=== PATIENT | female | born 1970 | race Caucasian/White ===

== ENCOUNTER 2018-12-02 15:31 | Inpatient (IN) | payer MEDICAID ==
[~2018-12-02] VITALS: Ht 152.4 cm; Wt 53.5 kg
[2018-12-02 15:38] VITALS: BP 121/58
[2018-12-02] MEDS ORDERED: ASPIRIN 325 MG TAB PO ONE (16:10)
--- NOTE | 2018-12-02 16:21 | NUR ---
PT BIB DAUGHTER C/O OF CP. PT REPORTS SHARP NON-RADIATING CP AT 8/10 THAT OCCURED TODAY AROUND 12:00 AND LASTED A COUPLE MINUTES AND WAS ACCOMPANIED WITH NAUSEA. PT DENIES SOB OR CP AT THIS TIME. CAP REFIL <2 SEC, HEART RRR, NO JUGULAR VEE DISTENTION, NO EDEMA, PT AAOX4, COOPERATIVE, RR EVEN, NON-LABORED, O2 SAT AT 100%. PT DAUGHTER REPORTS THAT THESE PAINS HAVE BEEN OCCURRING FOR THE POAST COUPLE DAYS. VSS. ER TO SEE PT. MEDHX:ANXIETY RX:DENIES
[2018-12-02 16:46] LABS: BASOPHILS % (AUTO) 0.3 % (0.0-2.0); EOSINOPHILS % (AUTO) 0.2 % (0.0-4.0); HEMATOCRIT 38.9 % (36-48); HEMOGLOBIN 12.9 g/dL (12.0-16.0); MEAN CORPUSCULAR HEMOGLOBIN 31 pg (27-31); MEAN CORPUSCULAR HGB CONC 33 g/dL (33-37); MEAN CORPUSCULAR VOLUME 92.1 fL (80-94); MONOCYTES # (AUTO) 0.4 K/uL (0.8-1.0); NEUTROPHILS # (AUTO) 5.9 K/uL (1.8-7.7); NEUTROPHILS % (AUTO) 79.5 % (42.2-75.2); PLATELET COUNT (AUTO) 147 K/uL (140-450); RED BLOOD CELL COUNT(AUTO) 4.23 MIL/uL (4.20-5.40); RED CELL DISTRIBUTION WIDTH 13.7 % (11.6-13.7); WHITE BLOOD COUNT (AUTO) 7.4 K/uL (4.8-10.8)
[2018-12-02 16:57] LABS: ANION GAP 11.9 (8-16); CARBON DIOXIDE 26.2 mmol/L (21-32); CREATININE 0.6 mg/dL (0.6-1.3); POTASSIUM 4.1 mmol/L (3.5-5.1)
[2018-12-02 17:01] LABS: PROTHROMBIN TIME 9.9 secs (10.8-13.4)
[2018-12-02 17:02] LABS: C-REACTIVE PROTEIN QUANT < 0.2 mg/dL (0.0-0.9)
[2018-12-02 17:03] LABS: ALBUMIN 3.9 g/dL (3.4-5.0); TOTAL BILIRUBIN 0.3 mg/dL (0.0-1.0)
[2018-12-02 17:07] LABS: D-DIMER < 100 ng/ml (0-400)
[2018-12-02] MEDS ORDERED: NITROGLYCERIN 0.4 MG TAB SL ONE (17:25)
[2018-12-02] MEDS ORDERED: DOCUSATE SODIUM 100 MG GELCAP PO PRN (17:25)
[2018-12-02] MEDS ORDERED: MORPHINE SULFATE 2 MG/ML SYR IVP PRN (17:25)
[2018-12-02] MEDS ORDERED: HYDROcodone/APAP 7.5/325 MG 1 TAB PO PRN (17:25)
[2018-12-02] MEDS ORDERED: ACETAMINOPHEN 325 MG TAB PO PRN (17:25)
[2018-12-02] MEDS ORDERED: ONDANSETRON 4 MG/2 ML VIAL IM/IVP PRN (17:25)
[2018-12-02 17:38] LABS: APPEARANCE,URINE CLEAR (CLEAR); BILIRUBIN,URINE NEGATIVE (NEGATIVE); BLOOD, URINE NEGATIVE (NEGATIVE); COLOR,URINE YELLOW (YELLOW); LEUKOCYTE ESTERASE ,URINE NEGATIVE (NEGATIVE); NITRITE, URINE NEGATIVE (NEGATIVE); PH,URINE 6.5 (5.0-9.0); UGLUCOSE NEGATIVE (NEGATIVE)
[2018-12-02 17:52] LABS: BARBITURATE, URINE NEG. ng/ml (NEG <=200); BENZODIAZEPINE, URINE NEG. ng/mL (NEG <=200); CANNABINOID, URINE NEG. ng/mL (NEG <=50); COCAINE, URINE NEG. ng/mL (NEG <=300); OPIATE, URINE NEG. ng/mL (NEG <=2000); PHENCYCLIDINE SCREEN,URINE NEG. ng/mL (NEG <=25)
[2018-12-02 17:56] LABS: CHOL/HDL RATIO 3.1 (1-4.5); MAGNESIUM 1.8 mg/dL (1.8-2.4); PHOSPHORUS 2.4 mg/dL (2.5-4.9); THYROID STIMULATING HORMONE 1.71 uIU/mL (0.34-3.74)
[2018-12-02 18:03] VITALS: BP 110/71
--- NOTE | 2018-12-02 18:03 | NUR ---
BEDSIDE REPORT RECEIVED FROM DINO BAUTISTA RN. PATIENT ON TELE MONITOR AND STANDARD PRECAUTIONS IN PLACE. PATIENT AAOX4 AND ON ROOM AIR, NO DISTRESS NOTED. PATIENT AMBULATORY, CONTINENT, AND SKIN INTACT. IV ON L AC 20G SALINE LOCK, IV PATENT AND INTACT. BED IN LOW POSITION, CALL LIGHT WITHIN REACH, SIDE RAILS X2 UP
--- NOTE | 2018-12-02 18:03 | NUR ---
Patient will be admitted to care of [facility]. Admited to tele via gurnwy w/ vss. Will go to room 122B. Belongings list completed. Report to Madison DE ANDA.
--- NOTE | 2018-12-02 19:25 | NUR ---
BEDSIDE REPORT GIVEN TO ADILSON HINKLE. PATIENT ENDORSED IN STABLE CONDITION
--- NOTE | 2018-12-02 19:26 | NUR ---
RECEIVED REPORT AT PT BEDSIDE FROM ADILSON CALLAHAN. PT IS AAOX4, ON ROOM AIR WITH CLEAR LUNG SOUNDS, AND SLOVENIAN SPEAKING. ABLE TO FOLLOW COMMANDS, AND ABLE TO MAKE NEEDS KNOWN. PT AMBULATES WITH STEADY GAIT INDEPENDENTLY. SKIN IS CLEAN, DRY, AND INTACT. PT HAS A 20G IV TO LEFT AC, ASYMPTOMATIC AND INTACT. NO SIGNS OR SYMPTOMS OF DISTRESS NOTED. VITAL SIGNS STABLE, DENIES HAVING ANY TYPE OF PAIN AT THIS MOMENT. BED IN LOWEST POSITION, CALL LIGHT WITHIN REACH. SAFETY MEASURES IN PLACE. WILL CONTINUE TO MONITOR.
[2018-12-02 20:00] VITALS: BP 105/66
[2018-12-02] MEDS ORDERED: LIDOCAINE VISCOUS 2% 20 ML UDC PO SCH (20:00)
[2018-12-02] MEDS ORDERED: DICYCLOMINE HCL LIQUID 10 MG/5 ML UDC PO SCH (20:00)
[2018-12-02] MEDS ORDERED: ALUMINUM HYD/MAG/SIMETHICONE 30 ML UDC PO SCH (20:00)
[2018-12-02] MEDS: METOPROLOL 25 MG TAB PO SCH (21:00)
[2018-12-02] MEDS ORDERED: METOPROLOL SUCCINATE 50 MG TABER PO SCH (21:00)
--- NOTE | 2018-12-02 21:05 | NUR ---
PT REFUSED MEDICATIONS BECAUSE SHE'S NOT HAVING ANY PAIN, HEARTBURN, OR DISCOMFORT AND SHE DOESN'T TAKE MEDICATIONS AT HOME. DR. LEE MADE AWARE.
[2018-12-02] MEDS: NACL 0.9% 1,000 ML IV SCH (21:33)
--- NOTE | 2018-12-02 22:18 | NUR ---
PROVIDED PT WITH DINNER AND EDUCATED HER ON BEING NPO AFTER MIDNIGHT, PT VERBALIZED UNDERSTANDING. BED IN LOWEST POSITION, CALL LIGHT WITHIN REACH. WILL CONTINUE TO MONITOR.
[2018-12-03] VITALS: BP 110/62
--- NOTE | 2018-12-03 | NUR ---
VITAL SIGNS STABLE, DENIES HAVING ANY TYPE OF PAIN AT THIS MOMENT. NO SIGNS OR SYMPTOMS OF DISTRESS NOTED. BED IN LOWEST POSITION, CALL LIGHT WITHIN REACH. SAFETY MEASURES IN PLACE. WILL CONTINUE TO MONITOR.
--- NOTE | 2018-12-03 01:05 | NUR ---
PT ASKED TO BE DISCONNECTED FROM IV TO GO TO RESTROOM. PT VOIDED AND IV WAS RECONNECTED. BED IN LOWEST POSITION, CALL LIGHT WITHIN REACH. SAFETY MEASURES IN PLACE. WILL CONTINUE TO MONITOR.
--- NOTE | 2018-12-03 03:38 | NUR ---
PT ASKED TO BE DISCONNECTED TO USE RESTROOM AGAIN. PT ASKED TO WAIT FOR HER SO THAT SHE WOULD BE CONNECTED AGAIN. PT ONLY VOIDED AGAIN, AND AMBULATED BACK TO BED. PT WAS RECONNECTED TO IV FLUIDS. BED IN LOWEST POSITION, CALL LIGHT WITHIN REACH. SAFETY MEASURES IN PLACE. WILL CONTINUE TO MONITOR.
[2018-12-03 04:00] VITALS: BP 107/71
[2018-12-03] MEDS: NACL 0.9% 1,000 ML IV SCH (05:26)
[2018-12-03] MEDS ORDERED: SODIUM PHOS / POTASSIUM PHOS 1 PKT PDR PO SCH ×2 (06:00→10:20)
--- NOTE | 2018-12-03 06:22 | NUR ---
JANETTE PHOS WAS ORDERED FOR THIS MORNING, Xeebel TECH HAD SAID TO KEEP PT NPO UNTIL US ABD IS DONE. ASKED DR SWANN IF MEDICATION CAN BE GIVEN NOW OR IF IT SHOULD BE HELD UNTIL AFTER ABD US. SHE SAID IT WAS OKAY TO HOLD UNTIL AFTER US.
--- NOTE | 2018-12-03 06:53 | NUR ---
CALLED US TO ASK WHEN US WILL BE DONE. THE US TECH SAID IT WAS OK TO GIVE PT MEDICATION AND SHE WILL BE HERE SOON. ADMINISTERED THE NEUTRA-PHOS.
--- NOTE | 2018-12-03 07:27 | NUR ---
ENDORSED PT TO DAY SHIFT ADILSON QUINTERO FOR CONTINUITY OF CARE, PT IN STABLE CONDITION.
[2018-12-03 08:00] VITALS: BP 108/67
[2018-12-03 08:15] LABS: T4 (THYROXINE) 6.3 ug/dL (4.5-12.0)
[2018-12-03 08:31] LABS: BASOPHILS % (AUTO) 0.2 % (0.0-2.0); EOSINOPHILS % (AUTO) 0.5 % (0.0-4.0); HEMATOCRIT 37.4 % (36-48); HEMOGLOBIN 12.3 g/dL (12.0-16.0); LYMPHOCYTES # (AUTO) 1.8 K/uL (2.5-16.5); MEAN CORPUSCULAR HEMOGLOBIN 30 pg (27-31); MEAN CORPUSCULAR HGB CONC 33 g/dL (33-37); MEAN CORPUSCULAR VOLUME 92.3 fL (80-94); MONOCYTES # (AUTO) 0.4 K/uL (0.8-1.0); MONOCYTES % (AUTO) 6.6 % (1.7-9.3); NEUTROPHILS % (AUTO) 63.7 % (42.2-75.2); PLATELET COUNT (AUTO) 136 K/uL (140-450); RED BLOOD CELL COUNT(AUTO) 4.05 MIL/uL (4.20-5.40); RED CELL DISTRIBUTION WIDTH 13.9 % (11.6-13.7); WHITE BLOOD COUNT (AUTO) 6.3 K/uL (4.8-10.8)
[2018-12-03] MEDS: METOPROLOL 25 MG TAB PO SCH (09:00)
[2018-12-03] MEDS ORDERED: LISINOPRIL 5 MG TAB PO SCH (09:00)
[2018-12-03 09:08] LABS: ANION GAP 8.5 (8-16); CARBON DIOXIDE 27.7 mmol/L (21-32); CREATININE 0.5 mg/dL (0.6-1.3); POTASSIUM 4.2 mmol/L (3.5-5.1)
--- NOTE | 2018-12-03 09:17 | NUR ---
PATIENT HAS BEEN SCREENED AND CATEGORIZED MODERATE NUTRITION RISK. PATIENT WILL BE SEEN WITHIN 3-5 DAYS OF ADMISSION. 12/05/18[address]
--- NOTE | 2018-12-03 09:25 | NUR ---
ENGINEERING OPERATOR SAFIA #[id number]. EXPLAINED ALL MEDICATIONS, PT VERBALIZED UNDERSTANDING. GAVE ORDERED DUE MEDICATIONS. EXCEPT BLOOD PRESSURE MEDICATIONS DUE TO LOW BLOOD PRESSURE. PT TOLERATED WELL. BED IN LOW POSITION. BED ALARM ON. CALL LIGHT AT BEDSIDE. WILL CONTINUE TO MONITOR.
[2018-12-03] MEDS: ASPIRIN 81 MG TAB.CHEW PO SCH (09:53)
[2018-12-03] MEDS: ATORVASTATIN 20 MG TAB PO SCH (09:54)
[2018-12-03 12:00] VITALS: BP 104/67
--- NOTE | 2018-12-03 12:37 | NUR ---
PT LYING IN BED IN STABLE CONDITION. FAMILY AT BEDSIDE. WILL CONTINUE TO MONITOR. BED IN LOW POSITION. CALL LIGHT AT BEDSIDE. BED ALARM ON.
--- NOTE | 2018-12-03 15:10 | NUR ---
PT C/O HEADACHE GAVE PRN MEDICATION TYLENOL 325MG 2 TABS. WILL CONTINUE TO MONITOR.
--- NOTE | 2018-12-03 15:53 | NUR ---
Analysis Internship Note: I met with patient and patient's Farhan Dee at bedside. Both speak Hong Konger. I introduced myself to patient and explained my role as a medical attendant. I obtained the following information from patient. Patient lives at home with her and their two daughters. She plans to return home upon discharge. She goes to [facility] ([facility] for medical care ([place], [place]) and does not have any difficulty filling her prescriptions at pharmacy. She is independent with ADLs at home and does not have difficulty ambulating at home. She denied hx of mental health. She also denied alcohol/substance abuse. She reported there was a family member loss within her family but all her family is emotionally supportive with each other. She currently has [employer] restricted coverage. She reported she sometimes has difficulty paying for medical appt fees. [employer] restricted does not cover medical appt fees. I provided her with general information about [facility] and suggested she explore option of enrolling into [facility]. She verbalized understanding. Senior Project Engineer and/or Real Estate Asset Manager will follow up as needed.
[2018-12-03 16:00] VITALS: BP 110/62
--- NOTE | 2018-12-03 17:10 | NUR ---
PT TALKING WITH FAMILY AT BEDSIDE. RESPIRATIONS EVEN AND UNLABORED. BED IN LOW POSITION. CALL LIGHT AT BEDSIDE. WILL CONTINUE TO MONITOR.
--- NOTE | 2018-12-03 19:28 | NUR ---
GAVE REPORT TO EXTRACTOR OPERATOR HELPER NURSE ANTONY FOR CONTINUITY OF CARE. PT IN STABLE CONDITION.
--- NOTE | 2018-12-03 19:30 | NUR ---
RECEIVED PT FROM LEON GILBERT MONGOLIAN SPEAKER AAOX4 AMBULATORY DENIES ANY CHEST PAIN, IV ON LEFT AC INFUSING WELL, ON TELEMETRY SR, RELATIVES ABED SIDE INITIAL ASSESSENT DONE
[2018-12-03 20:00] VITALS: BP 113/78
--- NOTE | 2018-12-03 21:30 | NUR ---
PT REMAIN STABLE WATCHING TV DENIES ANY CHEST PAIN ON TELE SR
[2018-12-04] VITALS: BP 106/64
--- NOTE | 2018-12-04 | NUR ---
PT HAS BEEN MONITORING CLOSE NOT SIGNS OF DISTRESS NOTED SLEEPING WELL ON TELEMETRY SR
[2018-12-04] MEDS: NACL 0.9% 1,000 ML IV SCH (03:21)
[2018-12-04 04:00] VITALS: BP 104/58
--- NOTE | 2018-12-04 04:26 | NUR ---
RECEIVED BEDSIDE REPORT FROM DAY SHIFT RN, PATIENT IN BED, ON RA, IV IN LEFT AC 20 INFUSING NS AT 10. NO SIGNS OF ACUTE DISTRESS AT THIS TIME, DENIES PAIN, CALL LIGHT WITHIN REACH, WILL CONTINUE TO MONITOR.
--- NOTE | 2018-12-04 06:18 | NUR ---
PATIENT SLEEPING IN BED, CALL LIGHT WITHIN REACH, WILL CONTINUE TO MONITOR
--- NOTE | 2018-12-04 07:18 | NUR ---
RECEIVED BED SIDE REPORT FROM SCHOOL COUNSELLOR RN SUMMER. PT AWAKE WITH FAMILY MEMBER AT BESIDE. APPEARS IN NO PAIN AND IN NO RESPIRATORY DISTRESS ON RA. L AC 20G RUNNING NS AT 10ML/HR. WILL CONTINUE TO MONITOR
--- NOTE | 2018-12-04 07:24 | NUR ---
ENDORSED PATIENT TO DAY SHIFT NURSE, PATIENT STABLE.
[2018-12-04 07:48] VITALS: BP 102/70
[2018-12-04] MEDS: ATORVASTATIN 20 MG TAB PO SCH (09:37)
[2018-12-04] MEDS: ASPIRIN 81 MG TAB.CHEW PO SCH (09:37)
--- NOTE | 2018-12-04 09:45 | NUR ---
GAVE PT AM MEDS. EDUCATED ON MEDS AND S/E OF MEDS. PT VERBALIZED UNDERSTANDING. PT AWARE THAT SHE IS TO BE DISCHARGED TODAY. STILL WAITING FOR MD TO PUT IN DC INSTRUCTIONS.
[2018-12-04 12:00] VITALS: BP 98/57
--- NOTE | 2018-12-04 13:47 | NUR ---
GAVE PT DC INSTRUCTIONS AND WAYS TO PREVENT CHEST PAIN FROM HAPPENING, HEALTHY DIET AND EXERCISE. PT VERBALIZED UNDERSTANDING. PT AWARE OF F/U APPOINTMENT WITH PCP. PT TOOK PEROSNAL BELONGINGS. PROFESSOR OF FRENCH WHEELED PT OUT. IV TAKEN OUT AND PRESSURE APPLIED WITH GAUZE. WRISTBAND TAKEN OUT WELL TELE MONITOR. PT DC IN STABLE CONDITION
== END 2018-12-04 13:47 | disposition home or self-care (01) | DRG 203 ==
LOC: MED 15:31 → MTU 17:26
PROVIDERS: ADMIT General Practice; ATTEND General Practice
DX: M94.0 Chondrocostal junction syndrome [Tietze] (principal); E83.39 Other disorders of phosphorus metabolism; I10 Essential (primary) hypertension; Z98.891 History of uterine scar from previous surgery
CPT/HCPCS: 36415; 71045; 76700; 80048; 80053; 80305; 81003; 81025; 82150; 83036; 83605; 83690; 83735; 83880; 84100; 84436; 84439; 84443; 84479; 84484; 85025; 85379; 85610; 85730; 86140; 87081; 93005; 99285; J7030; Q0092